=== PATIENT | female | born 2000 ===

== ENCOUNTER 2022-10-15 14:08 | Outpatient (REF) | payer BC, SELFPAY ==
--- OUTSIDE RECORDS SUMMARY | 2022-10-15 14:11 | XMS_ITS | CCD ---
Author Name Unknown Address [address] [place] [address] [phone] Organization Unknown Address [address] [place] [address] [phone] Care Team Providers Care Quality Assurance Tech Name Role Phone APOLLO ALLISON Attending Physician [phone] CONNIE GUAMAN Er Physician [phone] DIANA Moran Registered Nurse [phone] Vital Signs Vital Sign Value Unit Date/Time Recent/Initial ? BMI (Body Mass Index) 29.41 kg/m^2 06/24/2021 19: 19 Initial VS Weight Measured 205 lbs 06/24/2021 19:19 Ini tial VS Height 70 in 06/24/2021 19:19 Initial VS BSA (Body Surface Area) 2.14 m^2 06/24/2021 1 9:19 Initial VS BP Systolic 134 mmHg 06/24/2021 19:25 Initial VS BP Diastolic 83 mmHg 06/24/2021 19:25 Initia l VS Respiratory Rate 16 bpm 06/24/2021 19:25 In itial VS Heart Rate 108 bpm 06/24/2021 19:25 Initial VS O2 % BldC Oximetry 100 % 06/24/2021 19:25 Initial VS Body Temperature 36.8 degrees 06/24/2021 19:25 In itial VS BP Systolic 126 mmHg 06/24/2021 20:40 Most Re cent VS BP Diastolic 83 mmHg 06/24/2021 20:40 Most R ecent VS Respiratory Rate 16 bpm 06/24/2021 20:[address] Recent VS Heart Rate 80 bpm 06/24/2021 20:40 Most Rec ent VS O2 % BldC Oximetry 100 % 06/24/2021 20:40 Most Recent VS Allergies Allergy Code Allergy Type Reaction Status No Known Allergies {Clinical monitoring unavailable} 0 Drug allergy Active Procedures Unknown or Not Available. History of Immunizations Unknown or Not Available. Problems Problem Code Start Date Resolved Date Status Anxiety [id number] Active Other bipolar disorder [id number] Ac tive Results COMPREHENSIVE METABOLIC PANE L (CMP) - Collect Date/Time: 06/24/2021 19:30 Test Name Code Test Result Test Units Test Ref Rang e GLUCOSE 2345-7 98 mg/dL L=70 H=116 BUN 3094-0 7 mg/dL L=6 H=25 CREATININE 2160-0 0.83 mg/dL L=0.51 H=0.95 SODIUM SERUM 2951-2 141 mmol/L L=136 H=145 POTASSIUM SERUM 2823-3 3.4 mmol/L L=3.4 H=5 .2 CHLORIDE SERUM 2075-0 103 mmol/L L=96 H=110 CARBON DIOXIDE (CO2) 2028-9 30 mmol/L L=22 H=34 ANION GAP 82523-3 7.7 mmol/L CALCIUM SERUM 78842-9 9.4 mg/dL L=8.2 H=10. 2 BILIRUBIN TOTAL 1975-2 0.3 mg/dL L=0.0 H=1 .3 ALK. PHOS. 6768-6 80 U/L L=46 H=116 SGOT (AST) 1920-8 27 U/L L=15 H=37 SGPT (ALT) 1742-6 69 U/L L=12 H=78 TOTAL PROTEIN 2885-2 7.9 gm/dL L=6.0 H=8.0 ALBUMIN 1751-7 4.3 gm/dL L=3.4 H=5.0 AGE 20 years eGFR (non-Afr.Amer.) 24723-6 90 mL/min eGFR (Afr-Ecuadorean) 95624-0 108 mL/min CBC W/ DIFFERENTIAL* - Colle ct Date/Time: 06/24/2021 19:30 Test Name Code Test Result Test Units Test Ref Rang e WBC 6690-2 6.08 th/cmm L=5.00 H=10.00 NEUT % 55.3 % L=40.0 H=80.0 LYMPH % 34.0 % L=10.0 H=50.0 MONO % 79098-8 9.4 % L=2.0 H=12.0 EOS % 0.8 % L=0.0 H=8.0 BASO % 0.3 % L=0.0 H=3.0 IG % 2514-8 0.2 % L=0.0 H=1.1 NRBC % 31119-7 0.0 % L=0.0 H=0.0 NEUT abs count 751-8 3.4 th/cmm L=1.6 H=8. 4 LYMPH abs count 731-0 2.1 th/cmm L=1.5 H=4 .0 MONO abs count 742-7 0.6 th/cmm L=0.2 H=1. 0 EOS abs count 711-2 0.1 th/cmm L=0.0 H=0.5 BASO abs count 704-7 0.0 th/cmm L=0.0 H=0. 2 IG abs count 20440-4 0.0 th/cmm L=0.0 H=0.1 NRBC abs count 78288-1 0.0 mil/cmm L=0.0 H=0. 0 RBC 789-8 5.12 mil/cmm L=3.90 H=5.40 HEMOGLOBIN 718-7 14.5 gm/dL L=12.0 H=16.0 HEMATOCRIT 4544-3 43 % L=37 H=47 MCV 787-2 85 fL L=82 H=92 MCH 785-6 28.3 pg L=27.0 H=31.0 MCHC 786-4 33.4 % L=32.0 H=36.0 RDW-SD 788-0 39.7 fL L=39.0 H=49.0 PLATELET COUNT 777-3 211 th/cmm L=150 H=45 0 D-DIMER - Collect Date/Time: 06/24/2021 19:30 Test Name Code Test Result Test Units Test Ref Rang e D-DIMER 61740-9 0.26 mg/L L=0.19 H=0.50 Active Medications Unknown or Not Available. Medications Administered During Visit Unknown or Not Available. Encounters Encounter Diagnosis Diagnosis Code Start Date COVID-19 U071 06/24/2021 Social History Smoking Status Code Start Date End Date Never smoker [id number] Patient Decision Aids Unknown or Not Available. Discharge Instructions You were admitted to [facility] on 06/24/2021 19:14 with a principal diagnosis of COVID-19 You had the following tests done:CBC W/ DIFFERENTIAL*COMPREHENSIVE METABOLIC PANEL (CMP)D-DIMER You were discharged from [facility] on 06/24/2021 20:45 Should you have any questions prior to discharge, please contact a member of your healthcare team. If you have left the hospital and have any questions, please contact your primary care physician. Chief Complaint and Reason For Visit Chief Complaint Date of Onset CHEST PAIN COVID POSITIVE Function Status Unknown or Not Available. Plan of Care Unknown or Not Available. Referral/Transition of Care Unknown or Not Available.
--- OUTSIDE RECORDS SUMMARY | 2022-10-15 14:11 | XMS_ITS | CCD ---
Author Name Unknown Address [address] [place] [address] [phone] Organization Unknown Address [address] [place] [address] [phone] Care Team Providers Care Tattoo Identifier Name Role Phone JOCELYNE SCHROEDER Attending Physician [phone] VIPIN MEADOWS Er Physician [phone] SANDER DE LA CRUZ (Secondary) Physician [phone] IRINA Jara Registered Nurse [phone] HALEY Randhawa Registered Nurse [phone] Vital Signs Vital Sign Value Unit Date/Time Recent/Initial ? BMI (Body Mass Index) 30.56 kg/m^2 03/17/2021 17: 48 Initial VS Weight Measured 213 lbs 03/17/2021 17:48 Ini tial VS Height 70 in 03/17/2021 17:48 Initial VS BSA (Body Surface Area) 2.18 m^2 03/17/2021 1 7:48 Initial VS BP Systolic 136 mmHg 03/17/2021 17:48 Initial VS BP Diastolic 84 mmHg 03/17/2021 17:48 Initia l VS Respiratory Rate 16 bpm 03/17/2021 17:48 In itial VS Heart Rate 91 bpm 03/17/2021 17:48 Initial VS O2 % BldC Oximetry 99 % 03/17/2021 17:48 Initial VS Body Temperature 37.4 degrees 03/17/2021 17:48 In itial VS Allergies Allergy Code Allergy Type Reaction Status No Known Allergies {Clinical monitoring unavailable} 0 Drug allergy Active Procedures Unknown or Not Available. History of Immunizations Unknown or Not Available. Problems Problem Code Start Date Resolved Date Status Anxiety [id number] Active Other bipolar disorder 84035572 Ac tive Results Unknown or Not Available. Active Medications Unknown or Not Available. Medications Administered During Visit Unknown or Not Available. Encounters Encounter Diagnosis Diagnosis Code Start Date Tension-type headache, unspecified, not intracta ble [id number] 03/17/2021 Social History Smoking Status Code Start Date End Date Never smoker [id number] Patient Decision Aids Unknown or Not Available. Discharge Instructions You were admitted to [facility] on 03/17/2021 17:24 with a principal diagnosis of Tension-type headache, unspecified, not intractable You were discharged from [facility] on 03/17/2021 19:40 Should you have any questions prior to discharge, please contact a member of your healthcare team. If you have left the hospital and have any questions, please contact your primary care physician. Chief Complaint and Reason For Visit Chief Complaint Date of Onset HEADACHE 03/17/2021 Function Status Unknown or Not Available. Plan of Care Unknown or Not Available. Referral/Transition of Care Unknown or Not Available.
--- OUTSIDE RECORDS SUMMARY | 2022-10-15 14:12 | XMS_ITS | CCD ---
Author Name Unknown Address [address] [place] [address] [phone] Organization Unknown Address [address] [place] [address] [phone] Care Team Providers Care Tool Machinist Name Role Phone TORRIE BEEBE MD Attending Physician [phone] CONNIE GUAMAN Er Physician [phone] Vital Signs Unknown or Not Available. Allergies Allergy Code Allergy Type Reaction Status No Known Allergies {Clinical monitoring unavailable} 0 Drug allergy Active Procedures Unknown or Not Available. History of Immunizations Unknown or Not Available. Problems Problem Code Start Date Resolved Date Status Anxiety [id number] Active Other bipolar disorder 14855683 Ac tive Results Unknown or Not Available. Active Medications Unknown or Not Available. Medications Administered During Visit Unknown or Not Available. Encounters Encounter Diagnosis Diagnosis Code Start Date Contusion of left foot, initial encounter [id number] 09/13/2020 Social History Smoking Status Code Start Date End Date Never smoker [id number] Patient Decision Aids Unknown or Not Available. Discharge Instructions You were admitted to [facility] on 09/13/2020 20:09 with a principal diagnosis of Contusion of left foot, initial encounter You were discharged from [facility] on 09/13/2020 21:06 Should you have any questions prior to discharge, please contact a member of your healthcare team. If you have left the hospital and have any questions, please contact your primary care physician. Chief Complaint and Reason For Visit Chief Complaint Date of Onset LEFT FOOT INJURY Function Status Unknown or Not Available. Plan of Care Unknown or Not Available. Referral/Transition of Care Unknown or Not Available.
== END 2022-10-15 14:09 | disposition home or self-care (01) ==
LOC: LBN 14:08
PROVIDERS: Visit Provider Physician Assistant Medical
DX: J02.9 Acute pharyngitis, unspecified (principal)
CPT/HCPCS: 87070